=== PATIENT | male | born 1985 | race Two or more races ===

== ENCOUNTER 2022-09-13 19:59 | Emergency (ER) | payer OTHER, SELFPAY ==
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
[2022-09-13 20:05] VITALS: BP 188/112; PULSE 101; O2SAT 98
[2022-09-13 20:10] VITALS: BP 179/110; PULSE 90; RESP 16; TEMP 36.7; O2SAT 99; BMI 39.4
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
--- NOTE | 2022-09-13 20:24 | PC.NURSE ---
aox4. c-collar in place. lying flat. htn. talking well. on phone. resting. no distress. denies pain. no cp/dizziness/sob
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
--- NOTE | 2022-09-14 00:17 | PC.NURSE ---
pt a&o, no sob or chest pain, pt able to speak in full sentences at discharge no sign of distress, The RN only reviewed discharge instructions with pt. pt able to ambulate with a steady gate.
== END 2022-09-14 00:20 | disposition home or self-care (01) ==
PROVIDERS: Emergency Provider Internal Medicine
DX: S49.92XA Unspecified injury of left shoulder and upper arm, initial encounter (principal); V43.52XA Car driver injured in collision with other type car in traffic accident, initial encounter; Y93.9 Activity, unspecified; Y92.410 Unspecified street and highway as the place of occurrence of the external cause; Y99.9 Unspecified external cause status
CPT/HCPCS: 73030; 99284